=== PATIENT | male | born 2000 | race Caucasian/White ===

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

== ENCOUNTER → 2022-03-25 | Outpatient (CLI) | payer BC ==
--- NOTE | 2022-03-25 13:38 | US ---
EXAMINATION TYPE: US abdomen complete DATE OF EXAM: 03/25/2022 COMPARISON: CT 2019 CLINICAL HISTORY: R10.12 LEFT UPPER QUAD PAIN. Left flank pain couple weeks ago that lasted for a few days TECHNIQUE: Multiple sonographic images of the abdomen are obtained. FINDINGS: EXAM MEASUREMENTS: Liver Length: 14.7 cm Gallbladder Wall: 0.2 cm CBD: 0.2 cm Spleen: 10.8 cm Right Kidney: 10.9 x 5.3 x 5.4 cm Left Kidney: 10.6 x 6.1 x 4.8 cm Pancreas: obscured by overlying midline bowel gas Liver: wnl Gallbladder: wnl Evidence for sonographic Tapia's sign: no CBD: visualized portions wnl, limited by overlying bowel gas Spleen: wnl Right Kidney: wnl Left Kidney: wnl Upper IVC: wnl Abd Aorta: proximal portion obscured by overlying midline bowel gas, mid and distal portions wnl IMPRESSION: 1. No acute ultrasound abdomen abnormality. There is some limitation due to bowel gas.
== END | disposition home or self-care (01) ==
LOC: RADUSWWP 11:19
PROVIDERS: ATTEND Internal Medicine
DX: R10.12 Left upper quadrant pain (principal)
CPT/HCPCS: 76700